=== PATIENT | male | born 1945 | race Hispanic/Latino ===

== ENCOUNTER 2019-06-03 19:44 | Emergency (ER) | payer OTHER, MEDICARE ==
--- OUTSIDE RECORDS SUMMARY | 2019-06-03 19:46 | XMS REPORT ---
:1945 [facility] Address [address] [place] [address] Care Team Providers Name Role Phone Michael Blackburn Unavailable Unavailable Problems This patient has no known problems. Allergies, Adverse Reactions, Alerts This patient has no known allergies or adverse reactions. Medications This patient has no known medications. Results Test Description Test Time Test Comments Text Results Atomic Results Result Comments MRI PELVIS WO/W 2018-11-11 13:53:04 CLINICAL INDICATION: R10.2 Pelvic and perineal painMODALITY: Siemens Skyra 3.0 Lissette MRITECHNIQUE: Multiplanar, multiparametric MRI of the prostate is performed with T1, T2 and diffusion weighted imaging. IV contrast is administered, 20.0 ml Dotarem Dynamic post-contrast imaging is performed.IMPRESSION:No active process or suspicious findings. Moderate BPH is stable since 08/28/2017.FINDINGS:COMPARISON: Previous multi para metric prostate MRI performed 08/28/2017.Normal regional marrow signal is observed. No lytic or blastic osseous metastatic lesions.No common iliac, internal iliac, external iliac, inguinal or suspicious terri-prostatic lymph nodes.Regional bowel appears unremarkable. No mural or intraluminal bladder mass. Anterior abdominal wall and pelvic floor are unremarkable. No evidence of ascites.Estimated prostate volume is approximately 90 ml. The peripheral zone appears unremarkable. No suspicious prostate mass is demonstrated.Seminal vesicles are entirely unremarkable, symmetric in appearance with normal fluid signal on T2-weighted images.The sphincter is unremarkable. No perineal inflammatory change or mass is visible.With paramagnetic contrast administration, no suspicious contrast enhancement is seen. Urogenital diaphragm appears unremarkable.
[2019-06-03] MEDS ORDERED: NA CHLORIDE 0.9% 500 ML ONE (21:18)
--- NOTE | 2019-06-03 21:49 | RAD REPORT ---
EXAM DESCRIPTION: USExtrem Venous W Compress Bil06/03/2019 9:44 pm CLINICAL HISTORY: Bilateral leg pain COMPARISON: none FINDINGS: The common femoral, superficial femoral, popliteal and posterior tibial veins bilaterally are compressible and demonstrate augmentation. Doppler demonstrates good flow. IMPRESSION: No evidence of deep venous thrombosis involving either lower extremity.
[2019-06-03 21:50] LABS: Urine Blood NEGATIVE (NEG); Urine Glucose 1+ (NEG); Urine Protein NEGATIVE (NEG); Urine Specific Gravity 1.025 (1.005-1.030)
[2019-06-03 22:22] LABS: Absolute Lymphocytes (CBC) 1.2 K/uL (0.7-4.9); Basophils % 0.3 % (0-1.3); Hematocrit 42.7 % (39.6-49.0); Lymphocytes % 14.1 % (15.3-44.8); RBC Red Blood Cell Count 4.98 M/uL (4.33-5.43)
[2019-06-03 22:41] LABS: Albumin 3.7 g/dL (3.4-5.0); Bilirubin Total 1.3 mg/dL (0.2-1.0); Potassium 3.7 mmol/L (3.5-5.1); Protein, Total 7.2 g/dL (6.4-8.2)
--- NOTE | 2019-06-03 22:54 | ER ---
Nurse's Notes [facility] Name: Ludwin Burden Age: 73 yrs Sex: Male : 1945 Arrival Date: 06/03/2019 Time: 19:47 Bed 13 Private MD: Diagnosis: Pain in left leg;Low back pain;Type 2 diabetes mellitus Presentation: 06/02 20:07 Chief complaint: Patient states: A year ago he injured his back lifting a heavy TV and aj1 got sciatic nerve pain, he did physical therapy, but it didn't help, then he tried going to the chiropractor and that didn't help, so he went back to his doctor on Saturday, and they were advised to follow up with another doctor to see if his circulation is the problem. States that he has had multiple MRIs and CT scans and he has a slipped disk. Coronavirus screen: The patient has NOT traveled to a country currently being monitored by the [facility] within the last 14 days. Ebola Screen: Patient denies travel to an Ebola-affected area in the 21 days before illness onset. Initial Sepsis Screen: Does the patient meet any 2 criteria? No. Patient's initial sepsis screen is negative. Does the patient have a suspected source of infection? No. Patient's initial sepsis screen is negative. Risk Assessment: Do you want to hurt yourself or someone else? Patient reports no desire to harm self or others. 20:07 Method Of Arrival: Ambulatory aj1 20:07 Acuity: JAYDA 3 aj1 Triage Assessment: 20:17 General: Appears in no apparent distress. uncomfortable, Behavior is calm, cooperative, aj1 appropriate for age. Pain: Complains of pain in back and left leg. Neuro: Level of Consciousness is awake, alert, obeys commands. Cardiovascular: Patient's skin is warm and dry. Respiratory: Airway is patent Respiratory effort is even, unlabored, Respiratory pattern is. Historical: - Allergies: 20:17 Iodine; aj1 - Home Meds: 20:17 tamsulosin 0.4 mg oral cp24 1 cap once daily [Active]; metformin 500 mg Oral tab 2 tabs aj1 once daily [Active]; levothyroxine 50 mcg tab 1 tab once daily [Active]; losartan-hydrochlorothiazide 50-12.5 mg oral tab 1 tab once daily [Active]; aspirin 81 mg Oral chew 1 tab once daily [Active]; Levemir 100 unit/mL subcutaneous soln 44 units [Active]; ozempic [Active]; potassium chloride 10 mEq Oral cpER 1 cap once daily [Active]; topiramate 25 mg oral CSpX 1 cap once daily [Active]; Magnesium Oxide Oral daily [Active]; Vitamin D3 oral oral daily [Active]; - PMHx: 20:17 Diabetes - NIDDM; Hypothyroidism; Hypertension; Back pain; Kidney stones; aj1 - PSHx: 20:17 Cholecystectomy; aj1 - Immunization history:: Flu vaccine is up to date. - Social history:: Smoking status: Patient denies any tobacco usage or history of. - Family history:: not pertinent. Screenin:00 Abuse screen: Denies threats or abuse. Denies injuries from another. Nutritional aa1 screening: No deficits noted. Tuberculosis screening: No symptoms or risk factors identified. Fall Risk Ambulatory Aid- Crutches/Cane/Walker (15 pts). Assessment: 21:00 General: Appears in no apparent distress. comfortable, Behavior is calm, cooperative, aa1 appropriate for age. Pain: Complains of pain in left leg Pain Aggravated by weight bearing. Neuro: Level of Consciousness is awake, alert, obeys commands, Oriented to person, place, time, situation, Moves all extremities. Gait is steady. Respiratory: Airway is patent Respiratory effort is even, unlabored, Respiratory pattern is regular, symmetrical. GI: No signs and/or symptoms were reported involving the gastrointestinal system. : No signs and/or symptoms were reported regarding the genitourinary system. EENT: No signs and/or symptoms were reported regarding the EENT system. Derm: Skin is intact, is healthy with good turgor, Skin is pink, warm \T\ dry. Musculoskeletal: Circulation, motion, and sensation intact. Capillary refill < 3 seconds, Range of motion: intact in all extremities. 21:55 Reassessment: Patient appears in no apparent distress at this time. Patient and/or aa1 family updated on plan of care and expected duration. Pain level reassessed. Patient is alert, oriented x 3, equal unlabored respirations, skin warm/dry/pink. Pt taken to CT at this time. 23:27 Reassessment: Patient appears in no apparent distress at this time. Patient is alert, aa1 oriented x 3, equal unlabored respirations, skin warm/dry/pink. Discussed d/c \T\ f/u instructions with pt \T\ ; denies questions or concerns at this time. Copies of test results given to pt per his request. Ambulatory to lobby with steady gait. Vital Signs: 20:17 BP 162 / 91; Pulse 82; Resp 18; Temp 98.1; Pulse Ox 97% on R/A; Weight 77.11 kg (R); aj1 Height 5 ft. 4 in. (162.56 cm) (R); 22:11 BP 162 / 86; Pulse 70; Resp 18; Pulse Ox 97% on R/A; aa1 23:27 BP 168 / 83; Pulse 72; Resp 18; Temp 98.3; Pulse Ox 98% on R/A; Pain 3/10; aa1 20:17 Body Mass Index 29.18 (77.11 kg, 162.56 cm) aj1 ED Course: 19:47 Patient arrived in ED. jg7 20:11 Triage completed. aj1 20:17 Arm band placed on Patient placed in waiting room, Patient notified of wait time. aj1 20:41 Kory Collins MD is Attending Physician. [facility] 21:00 Patient has correct armband on for positive identification. Bed in low position. Call aa1 light in reach. Pulse ox on. NIBP on. Warm blanket given. 21:01 Maggy Grimaldo, RN is Primary Nurse. aa1 21:44 Urine collected: clean catch specimen, clear. aa1 21:47 US Extremity Venous W Compression Gibran In Process Unspecified. EDMS 21:50 Initial lab(s) drawn, by me, sent to lab. Inserted saline lock: 22 gauge in left aa1 forearm, using aseptic technique. Blood collected. 22:16 CT Lumbar Spine Wo Con In Process Unspecified. EDMS 23:27 No provider procedures requiring assistance completed. IV discontinued, intact, aa1 bleeding controlled, No redness/swelling at site. Pressure dressing applied. Administered Medications: 22:08 Drug: NS 0.9% 500 ml Route: IV; Rate: bolus; Site: left forearm; aa1 22:45 Follow up: IV Status: Completed infusion; IV Intake: 500ml aa1 23:15 Drug: Valium 5 mg Route: PO; aa1 23:27 Follow up: Response: No adverse reaction; Medication administered at discharge. aa1 23:15 Drug: TORadol 30 mg Route: IVP; Site: left forearm; aa1 23:27 Follow up: Response: No adverse reaction; Medication administered at discharge. aa1 Intake: 22:45 IV: 500ml; Total: 500ml. aa1 Outcome: 22:50 Discharge ordered by . zina 23:27 Discharged to home ambulatory, with significant other. aa1 23:27 Condition: good 23:27 Discharge instructions given to patient, significant other, Instructed on discharge instructions, follow up and referral plans. medication usage, Demonstrated understanding of instructions, follow-up care, medications, Prescriptions given X 3. 23:29 Patient left the ED. aa1 Signatures: Dispatcher [employer] Abi Pompa, RN RN [email or web address] Maggy Grimaldo RN RN aa1 Kory Collins MD MD cha Gutierrez, Tg jg7
--- NOTE | 2019-06-03 22:54 | EDPHYS ---
Physician Documentation [facility] Name: Ludwin Burden Age: 73 yrs Sex: Male : 1945 Arrival Date: 06/03/2019 Time: 19:47 Bed 13 Private MD: JESSI Physician Kory Collins HPI: 06/02 20:57 This 73 yrs old Male presents to ER via Ambulatory with complaints of Leg zina Pain, Knee Pain, Foot Pain. 20:57 The patient presents with pain, spasm, stiffness. The complaints affect the lateral zina aspect of left thigh, lateral aspect of left knee, lateral aspect of left calf, left hamstring, posterior aspect of left knee, left calf, medial aspect of left thigh, medial aspect of left knee, medial aspect of left calf, left quadriceps, left knee and left bhagat. Context: The problem was sustained at an unknown site. Onset: The symptoms/episode began/occurred 2 day(s) ago. Modifying factors: The symptoms are alleviated by remaining still, the symptoms are aggravated by movement. Associated signs and symptoms: The patient has no apparent associated signs or symptoms. Historical: - Allergies: 20:17 Iodine; aj1 - Home Meds: 20:17 tamsulosin 0.4 mg oral cp24 1 cap once daily [Active]; metformin 500 mg Oral tab 2 tabs aj1 once daily [Active]; levothyroxine 50 mcg tab 1 tab once daily [Active]; losartan-hydrochlorothiazide 50-12.5 mg oral tab 1 tab once daily [Active]; aspirin 81 mg Oral chew 1 tab once daily [Active]; Levemir 100 unit/mL subcutaneous soln 44 units [Active]; ozempic [Active]; potassium chloride 10 mEq Oral cpER 1 cap once daily [Active]; topiramate 25 mg oral CSpX 1 cap once daily [Active]; Magnesium Oxide Oral daily [Active]; Vitamin D3 oral oral daily [Active]; - PMHx: 20:17 Diabetes - NIDDM; Hypothyroidism; Hypertension; Back pain; Kidney stones; aj1 - PSHx: 20:17 Cholecystectomy; aj1 - Immunization history:: Flu vaccine is up to date. - Social history:: Smoking status: Patient denies any tobacco usage or history of. - Family history:: not pertinent. ROS: 20:57 Constitutional: Negative for fever, chills, and weight loss, Eyes: Negative for injury, zina pain, redness, and discharge, ENT: Negative for injury, pain, and discharge, Neck: Negative for injury, pain, and swelling, Cardiovascular: Negative for chest pain, palpitations, and edema, Respiratory: Negative for shortness of breath, cough, wheezing, and pleuritic chest pain, Abdomen/GI: Negative for abdominal pain, nausea, vomiting, diarrhea, and constipation, Back: Negative for injury and pain, : Negative for injury, bleeding, discharge, and swelling, Skin: Negative for injury, rash, and discoloration, Neuro: Negative for headache, weakness, numbness, tingling, and seizure, Psych: Negative for depression, anxiety, suicide ideation, homicidal ideation, and hallucinations, Allergy/Immunology: Negative for hives, rash, and allergies, Endocrine: Negative for neck swelling, polydipsia, polyuria, polyphagia, and marked weight changes, Hematologic/Lymphatic: Negative for swollen nodes, abnormal bleeding, and unusual bruising. 20:57 MS/extremity: Positive for decreased range of motion, pain, of the left leg. Exam: 20:57 Constitutional: This is a well developed, well nourished patient who is awake, alert, zina and in no acute distress. Head/Face: Normocephalic, atraumatic. Eyes: Pupils equal round and reactive to light, extra-ocular motions intact. Lids and lashes normal. Conjunctiva and sclera are non-icteric and not injected. Cornea within normal limits. Periorbital areas with no swelling, redness, or edema. ENT: Nares patent. No nasal discharge, no septal abnormalities noted. Tympanic membranes are normal and external auditory canals are clear. Oropharynx with no redness, swelling, or masses, exudates, or evidence of obstruction, uvula midline. Mucous membranes moist. Neck: Trachea midline, no thyromegaly or masses palpated, and no cervical lymphadenopathy. Supple, full range of motion without nuchal rigidity, or vertebral point tenderness. No Meningismus. Chest/axilla: Normal chest wall appearance and motion. Nontender with no deformity. No lesions are appreciated. Cardiovascular: Regular rate and rhythm with a normal S1 and S2. No gallops, murmurs, or rubs. Normal PMI, no JVD. No pulse deficits. Respiratory: Lungs have equal breath sounds bilaterally, clear to auscultation and percussion. No rales, rhonchi or wheezes noted. No increased work of breathing, no retractions or nasal flaring. Abdomen/GI: Soft, non-tender, with normal bowel sounds. No distension or tympany. No guarding or rebound. No evidence of tenderness throughout. Back: No spinal tenderness. No costovertebral tenderness. Full range of motion. Skin: Warm, dry with normal turgor. Normal color with no rashes, no lesions, and no evidence of cellulitis. Neuro: Awake and alert, GCS 15, oriented to person, place, time, and situation. Cranial nerves II-XII grossly intact. Motor strength 5/5 in all extremities. Sensory grossly intact. Cerebellar exam normal. Normal gait. Psych: Awake, alert, with orientation to person, place and time. Behavior, mood, and affect are within normal limits. 20:57 Musculoskeletal/extremity: Circulation is intact in all extremities. Sensation intact. Compartment Syndrome exam of affected extremity: is normal. Joints: All joints appear normal with full range of motion. Weight bearing: able to fully bear weight, DVT Exam: No signs of deep vein thrombosis. no pain, no swelling, no tenderness, negative Homans' sign noted on exam, no appreciated bluish discoloration, no erythema, no increased warmth. Vital Signs: 20:17 BP 162 / 91; Pulse 82; Resp 18; Temp 98.1; Pulse Ox 97% on R/A; Weight 77.11 kg (R); aj1 Height 5 ft. 4 in. (162.56 cm) (R); 22:11 BP 162 / 86; Pulse 70; Resp 18; Pulse Ox 97% on R/A; aa1 23:27 BP 168 / 83; Pulse 72; Resp 18; Temp 98.3; Pulse Ox 98% on R/A; Pain 3/10; aa1 20:17 Body Mass Index 29.18 (77.11 kg, 162.56 cm) [facility]: 20:41 Patient medically screened. [facility] 20:59 Data reviewed: vital signs, nurses notes, lab test result(s), radiologic studies. [facility] 06/02 21:00 Order name: CBC with Diff; Complete Time: 22:52 [facility] 06/02 21:00 Order name: Comprehensive Metabolic Panel; Complete Time: 22:52 [facility] 06/02 21:00 Order name: CT Lumbar Spine Wo Con [facility] 06/02 21:03 Order name: US Extremity Venous W Compression Gibrna; Complete Time: 22:10 [facility] 06/02 21:43 Order name: Urine Dipstick--Ancillary (enter results); Complete Time: 22:10 mw 06/02 21:00 Order name: Urine Dipstick-Ancillary (obtain specimen); Complete Time: 21:42 [facility] Administered Medications: 22:08 Drug: NS 0.9% 500 ml Route: IV; Rate: bolus; Site: left forearm; aa1 22:45 Follow up: IV Status: Completed infusion; IV Intake: 500ml aa 23:15 Drug: Valium 5 mg Route: PO; aa1 23:27 Follow up: Response: No adverse reaction; Medication administered at discharge. aa1 23:15 Drug: TORadol 30 mg Route: IVP; Site: left forearm; aa1 23:27 Follow up: Response: No adverse reaction; Medication administered at discharge. [facility] Disposition: 06/03/19 22:50 Discharged to Home. Impression: Pain in left leg, Low back pain, Type 2 diabetes mellitus. - Condition is Stable. - Discharge Instructions: Back Pain, Adult, Chronic Back Pain, Type 2 Diabetes Mellitus, Diagnosis, Adult, Musculoskeletal Pain, Back Pain, Adult, [id number], Type 2 Diabetes Mellitus, Diagnosis, Adult, [id number]. - Prescriptions for Medrol ([place]er[place]) 4 mg Oral Tablets, Dose Pack - take 1 tablet by ORAL route as directed - follow package instructions; 1 packet. Motrin IB 200 mg Oral Tablet - take 2 tablet by ORAL route every 6 hours As needed as needed with food; 30 tablet. Cyclobenzaprine 5 mg Oral Tablet - take 1 tablet by ORAL route 3 times per day As needed; 15 tablet. - Medication Reconciliation Form, Thank You Letter, Antibiotic Education, Prescription Opioid Use form. - Follow up: Private Physician; When: 2 - 3 days; Reason: Recheck today's complaints, Continuance of care, Re-evaluation by your physician. - Problem is new. - Symptoms have improved. Signatures: Dispatcher [employer] Abi Pompa RN RN aj1 Maggy Grimaldo RN RN aa1 Kory Collins MD MD [facility] Corrections: (The following items were deleted from the chart) 23:29 22:50 06/03/2019 22:50 Discharged to Home. Impression: Pain in left leg; Low back pain; aa1 Type 2 diabetes mellitus. Condition is Stable. Discharge Instructions: Back Pain, Adult, Chronic Back Pain, Type 2 Diabetes Mellitus, Diagnosis, Adult, Musculoskeletal Pain, Back Pain, Adult, [id number], Type 2 Diabetes Mellitus, Diagnosis, Adult, [id number]. Prescriptions for Medrol (Frederick) 4 mg Oral Tablets, Dose Pack - take 1 tablet by ORAL route as directed - follow package instructions; 1 packet, Motrin IB 200 mg Oral Tablet - take 2 tablet by ORAL route every 6 hours As needed as needed with food; 30 tablet, Cyclobenzaprine 5 mg Oral Tablet - take 1 tablet by ORAL route 3 times per day As needed; 15 tablet. and Forms are Medication Reconciliation Form, Thank You Letter, Antibiotic Education, Prescription Opioid Use. Follow up: Private Physician; When: 2 - 3 days; Reason: Recheck today's complaints, Continuance of care, Re-evaluation by your physician. Problem is new. Symptoms have improved. zina
[2019-06-03] MEDS ORDERED: DIAZEPAM 5 MG TABLET ONE (23:17)
[2019-06-03] MEDS ORDERED: KETOROLAC 30 MG/ML INJ ONE (23:17)
[2019-06-03 23:38] VITALS: BP 168/83; TEMP 98.3; O2SAT 98
--- NOTE | 2019-06-04 09:58 | RAD REPORT ---
EXAM DESCRIPTION: CT - Spine Lumbar Wo Con - 06/04/2019 6:26 am CLINICAL HISTORY: Pain; Radiculopathy TECHNIQUE: Contiguous axial CT images obtained through the lumbar spine without IV contrast. Coronal and sagittal reformatted images also provided. This exam was performed according to our departmental dose-optimization program, which includes autom ated exposure control, adjustment of the mA and/or kV according to patient size and/or use of iterati ve reconstruction technique. COMPARISON: None available for comparison FINDINGS: Vertebra: No acute or remote fracture deformity. Grade 1 anterolisthesis of C4 on C5. No s ubluxation. Disc spaces: Mild to moderate multilevel degenerative changes most pronounced at L4-L5 manifested by a 6 mm broad-based bulge and moderate bilateral facet arthropathy. Mild narrowing of the central thec al sac and bilateral foramina at this level. Soft tissues: Unremarkable IMPRESSION: Multilevel degenerative changes most pronounced at L4-L5. Electronically signed by: Eloy Marquis MD 06/03/2019 10:42 PM CDT Due to temporary technical issues with the PACS/Fluency reporting system, reports are being signed by the in house radiologist as a courtesy to ensure prompt reporting. The interpreting radiologist is f ully responsible for the content of the report.
== END 2019-06-03 23:29 | disposition home or self-care (01) ==
LOC: ER 19:44
DX: M79.605 Pain in left leg (principal); M54.5 Low back pain; E11.9 Type 2 diabetes mellitus without complications; Z91.09 Other allergy status, other than to drugs and biological substances; E03.9 Hypothyroidism, unspecified; I10 Essential (primary) hypertension
CPT/HCPCS: 96361; 85025; 36415; 81003; 80053; 72131; 93970; 96374; 99284; J7040